=== PATIENT | male | born 2000 | race Hispanic/Latino ===

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

== ENCOUNTER 2025-02-03 12:16 | Emergency (ER) | payer BC, MEDICAID ==
[~2025-02-03] VITALS: Ht 175.3 cm; Wt 59.9 kg
[~2025-02-03 12:16] MED LIST: AMOX500C2 PO; IBUP-2070 PO
[2025-02-03] MEDS ORDERED: OCTYL 2-CYANOACRYLATE 1 EACH TP STA (12:20)
--- NOTE | 2025-02-03 12:32 | ERN ---
ED Note History of Present Illness Stated Complaint: BLOODY STOOL, FATIGUE, STOMACH ACID Time Seen by MD: 12:19 Dictation: PATIENT IS A 24-YEAR-OLD MALE COMING IN TODAY WITH HIS MOTHER WITH COMPLAINTS OF EPIGASTRIC PAIN WITH BLOODY STOOLS INTERMITTENTLY FOR THE LAST YEAR AND A HALF. NO FEVER NO CHILLS NO NAUSEA VOMITING. HE STATES HE HAS BEEN SEEN AT [facility] IN [place] HAD A PARKING WORKER WHO DID A SCOPE ENDOSCOPY AND COLONOSCOPY AND TOLD HIM HE HAD ULCERATIVE COLITIS. 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 NOW LIVES IN [place] IN HIS WANTING ADDITIONAL HELP. NO FEVER NO CHILLS. Allergies: Coded Allergies: No Known Allergies (Unverified Allergy, Unknown, 03/16/19) Home Meds Active Scripts Ibuprofen (Ibuprofen) 600 Mg Tablet, 600 MG PO Q6H PRN for PAIN, #30 TAB 0 Refills Prov:SATYA JONES MD 10/01/21 Amoxicillin (Amoxicillin) 500 Mg Capsule, 500 MG PO TID for 10 Days, #30 CAP 0 Refills Prov:SATYA JONES MD 10/01/21 Past Medical History Past Medical History: No Pertinent History, Other (ULCERATIVE COLITIS) Surgical History: None RN Note Reviewed/Agreed w/PFSH: Yes Review of System Dictation CONSTITUTIONAL: NEGATIVE EXCEPT FOR HPI HEAD/FACE: NEGATIVE EXCEPT FOR HPI EENT: NEGATIVE EXCEPT FOR HPI RESPIRATORY: NEGATIVE EXCEPT FOR HPI GASTROINTESTINAL/ABDOMINAL: NEGATIVE EXCEPT FOR HPI BLOODY DIARRHEA WITH A EPIGASTRIC PAIN GENITOURINARY: NEGATIVE EXCEPT FOR HPI MUSCULOSKELETAL: NEGATIVE EXCEPT FOR HPI INTEGUMENTARY: NEGATIVE EXCEPT FOR HPI NEUROLOGICAL/PSYCH: NEGATIVE EXCEPT FOR HPI HEMATOLOGIC/LYMPHATIC: NEGATIVE EXCEPT FOR HPI ALL SYSTEMS NEGATIVE, EXCEPT NOTED ABOVE. 13 POINT REVIEW OF SYSTEMS ASSESSED AND ALL NEGATIVE EXCEPT FOR ABOVE. Initial Vital Sign VS Vital Signs Date Time Temp Pulse Resp B/P (MAP) Pulse Ox O2 Delivery O2 Flow Rate FiO2 02/03/25 12:31 98.4 70 18 117/70 99 Room Air 02/03/25 15:14 0 21 Physical Exam Dictation VITAL SIGNS REVIEWED GENERAL APPEARANCE: ALERT, ORIENTED X 3, NO ACUTE DISTRESS, WELL DEVELOPED, NOURISHED. HEAD AND FACE: NON-TRAUMATIC. EYES: PERRL, PINK CONJUNCTIVAS, EYELID NO TRAUMA, ANTERIOR CHAMBER WITH ARCUS SENILIS. EARS: PINNAS INTACT AND NO SIGNS OF TRAUMA OR ERYTHEMA EAR CANALS CLEAR AND NO DISCHARGE TM NO ERYTHEMA NOSE: NO DISCHARGE, NO BLEEDING. OROPHARYNX: MOUTH NORMAL, TONGUE PINK, PHARYNX CLEAR,NO ERYTHEMA, TONSILS NO EXUDATES, NO ABSCESSES NOTED, MUCOUS MEMBRANE MOIST NECK: SUPPLE, NON-TENDER, NO THYROMEGALY, NO MASSES, NO JVD, NO BRUITS BREAST:DEFERRED CHEST:NO TENDERNESS, NO CREPITUS, NO PARADOXICAL MOVEMENT, NO RETRACTIONS LUNGS:CLEAR, WELL-VENTILATED, SYMMETRIC, NO RALES, NO WHEEZING, NO RHONCHI, NO STRIDOR, GOOD BREATH SOUNDS BILATERALLY HEART: REGULAR RATE, REGULAR RHYTHM, NO MURMUR, NO GALLOPS VASCULAR: NO PERIPHERAL EDEMA, ABDOMEN: SOFT, POSITIVE BOWEL SOUNDS, NONDISTENDED, NO GUARDING, MILD EPIGASTRIC TENDERNESS WITH PALPATION, NO REBOUND, NO MASSES NO HEPATOMEGALY, NO SPLENOMEGALY, NO ARIAS'S SIGN, NO HERNIAS. RECTAL: DEFERRED GENITAL: DEFERRED NEUROLOGICAL: NORMAL SPEECH, MOTOR FUNCTION INTACT, SENSORY FUNCTION INTACT MUSCULOSKELETAL: NECK NONTENDER, FULL RANGE OF MOTION, BACK NONTENDER, FULL RANGE OF MOTION, EXTREMITIES: NONTENDER, FULL RANGE OF MOTION SKIN: COLOR PINK, DRY, NO TURGOR, NO RASH, NO LACERATIONS, NO ABRASIONS, NO CONTUSIONS. LYMPHATIC: DEFERRED Results (Laboratory/Radiology) Laboratory/Radiology Laboratory Tests Test 02/03/25 12:40 White Blood Count 4.7 K/uL (4.8-10.8) L Red Blood Count 5.17 MIL/uL (4.50-6.20) Hemoglobin 9.1 g/dL (14.0-18.0) L Hematocrit 32.8 % (42-54) L Mean Corpuscular Volume 63.4 fL (79-99) L Mean Corpuscular Hemoglobin 17.6 pg (27.0-33.0) L Mean Corpuscular Hemoglobin Concent 27.7 g/dL (32.0-36.0) L Red Cell Distribution Width 20.7 % (11.0-15.5) H Platelet Count 455 K/uL (130-400) H Mean Platelet Volume 9.4 fL (7.5-10.5) Immature Granulocyte % (Auto) 0.2 % (0-1) Neutrophils (%) (Auto) 45.8 % (40.0-77.0) Lymphocytes (%) (Auto) 40.5 % (21.0-51.0) Monocytes (%) (Auto) 11.1 % (3.0-13.0) Eosinophils (%) (Auto) 1.3 % (0.0-8.0) Basophils (%) (Auto) 1.1 % (0.0-5.0) Neutrophils # (Auto) 2.2 K/uL (1.8-7.7) Lymphocytes # (Auto) 1.9 K/uL (1.0-4.8) Monocytes # (Auto) 0.5 K/uL (0.1-1.0) Eosinophils # (Auto) 0.06 K/uL (0.00-0.70) Basophils # (Auto) 0.05 K/uL (0.00-0.20) Absolute Immature Granulocyte (auto 0.01 K/uL (0-1) Nucleated Red Blood Cells 0.0 % (0.0-0.19) Red Blood Cell Morphology See comments Sodium Level 142 mmol/L (136-145) Potassium Level 3.6 mmol/L (3.5-5.1) Chloride Level 105 mmol/L (101-111) Carbon Dioxide Level 28 mmol/L (21-32) Blood Urea Nitrogen 7 mg/dL (7-18) Creatinine 0.7 mg/dL (0.5-1.3) Glomerular Filtration Rate Calc 134 mL/min (>90) Random Glucose 87 mg/dL (70-105) Total Calcium 8.8 mg/dL (8.5-10.1) Lipase 45 U/L (16-77) CT ABDOMEN/PELVIS W/CONTRAST HISTORY: Pain COMPARISON: None TECHNIQUE: Multiple sequential axial images of the abdomen and pelvis were obtained from the dome of the diaphragm through symphysis pubis. Patient was given 75 cc of Omnipaque through intravenous route. Oral contrast was not given. FINDINGS: No pleural effusion is seen bilaterally. There is no evidence of parenchymal disease or pulmonary nodule of the visualized lower lungs. The heart is not enlarged. The liver, spleen, adrenal glands and pancreas are unremarkable. There is no evidence of hydronephrosis bilaterally. No evidence of renal stone is seen. Fecal material is seen in the colon. There are normal size retroperitoneal and mesenteric lymph nodes. No ascites is seen. No CT evidence of acute appendicitis is seen. Clinical correlation is recommended. Minimal small bowel dilatation is seen with fluid-filled may be related to enteritis. Pelvic sidewalls are symmetric bilaterally. Bladder is well distended without wall thickening. IMPRESSION: 1. No CT evidence of acute appendicitis is seen. Clinical correlation is recommended. Minimal small bowel dilatation is seen with fluid-filled may be related to enteritis. Labs Reviewed?: Yes ED Course ED Course Orders Procedure Category Date Status Time Dermabond (Dermabond) PHA 02/03/25 Complete 12:20 Cbc With Differential LAB 02/03/25 Complete 12:29 Urinalysis Profile LAB 02/03/25 Logged 12: Occult Blood Stool LAB 02/03/25 Logged Single Only 12:29 0.9%Nacl 1000ml (Ns PHA 02/03/25 Complete 1000ml) 12:30 Morphine 2mg Syg PHA 02/03/25 Complete (Morphine 2mg Syg) 12:30 Ondansetron 4mg Inj PHA 02/03/25 Complete (Zofran 4mg Inj) 12:30 Famotidine 20mg Tab PHA 02/03/25 Complete (Pepcid 20mg Tab) 12:30 Lipase LAB 02/03/25 Complete 12:29 Basic Metabolic Panel LAB 02/03/25 Complete 12:29 Ct Abdomen/Pelvis CT 02/03/25 Resulted W/Contrast 14:38 Iohexol (Omnipaque) PHA 02/03/25 Complete 14:53 Methylprednisolone PHA 02/03/25 Complete Succ 125mg (Solu-Medr 16:00 Current Medications Medications (Trade) Dose Ordered Sig/Denzel Route PRN Reason Start Time Stop Time Status Last Admin Dose Admin Famotidine (Pepcid 20mg Tab) 20 mg ONCE ONCE PO 02/03/25 12:30 02/03/25 12:31 DC 02/03/25 15:01 Iohexol (Omnipaque) 75 ml STK-MED ONCE IV 02/03/25 14:53 02/03/25 14:53 DC Methylprednisolone Sodium Succinate (Solu-medROL 125MG) 125 mg ONCE ONCE IVP 02/03/25 16:00 02/03/25 16:01 DC 02/03/25 15:55 Morphine Sulfate (morPHINE 2MG SYG) 2 mg ONCE ONCE IVP 02/03/25 12:30 02/03/25 12:31 DC 02/03/25 15:01 Octyl Cyanoacrylate (Dermabond) 1 each ONCE STAT TP 02/03/25 12:20 02/03/25 12:30 DC Ondansetron HCl (zoFRAN 4MG INJ) 4 mg ONCE ONCE IVP 02/03/25 12:30 02/03/25 12:31 DC 02/03/25 15:01 Sodium Chloride 1,000 ml @ 0 mls/hr ONCE ONCE IV 02/03/25 12:30 02/03/25 12:31 DC 02/03/25 15:01 Vital Signs Date Time Temp Pulse Resp B/P (MAP) Pulse Ox O2 Delivery O2 Flow Rate FiO2 02/03/25 15:14 55 16 117/69 100 Room Air* 0 21 02/03/25 12:31 98.4 70 18 117/70 99 Room Air 1620/SPOKE WITH PATIENT AT LENGTH REGARDING MY FINDINGS INCLUDING CT SCAN. HE IS AWARE HE HAS BEEN DISCHARGED HOME WITH A ENTERITIS AND CHRONIC ANEMIA, WE WILL BE REFERRED TO DR. PEREZ WITH THE AMENDED DIET Medical Decision Making MDM MDM: DIFFERENTIAL DIAGNOSIS: GI BLEED/ULCERATIVE COLITIS/CROHN/IBS/ELECTROLYTE IMBALANCE/DEHYDRATION RATIONALE: TESTS CONSIDERED AND ORDERED SECONDARY TO SHARED DECISION MAKING INCLUDE: LABS/RADIOLOGY PREVIOUS OUTSIDE RECORDS REVIEWED: OLD ER VISITS. RISK OF COMPLICATION AND/OR MORBIDITY OR MORTALITY OF PATIENT MANAGEMENT: NONE MEDICATIONS-PER MEDICATION RECONCILIATION NEED FOR HOSPITALIZATION: PATIENT DOES NOT MEET CRITERIA FOR HOSPITALIZATION. NO NEED FOR EMERGENCY MAJOR/MINOR SURGERY: NO THERE ARE NO SOCIAL CONCERNS WITH THIS PATIENT. PRESCRIPTION DRUG MANAGEMENT SULFASALAZINE/PREDNISONE PRESCRIPTIONS WILL INCLUDE SYMPTOMATIC CARE PATIENT'S PRIOR EXTERNAL MEDICAL RECORDS FROM OTHER ER VISITS WERE REVIEWED BY ME INDICATED. PRIOR TESTING AND RESULTS FROM PREVIOUS VISITS WERE REVIEWED. PRIOR TESTS WERE TAKEN INTO ACCOUNT WITH MEDICAL DECISION MAKING AND RESOURCE UTILIZATION, INDEPENDENT HISTORIAN/HISTORIANS WERE USED TO OBTAIN COMPLETE MEDICAL HISTORY. I INDEPENDENTLY INTERPRETED THE TEST THAT WERE PERFORMED, RESULTS WERE REVIEWED BY ME AND CONSIDERED FINDINGS ON RADIOLOGY IF ORDERED. MEDICAL MANAGEMENT AND EXAMINATION INTERPRETATION DISCUSSIONS WERE HAD BY ME WITH OTHER QUALIFIED HEALTHCARE PROFESSIONALS INDICATED FOR THE PATIENT'S CARE. DX & DISP Disposition: Discharge Departure Impression: Primary Impression: Enteritis Additional Impressions: Chronic anemia, History of ulcerative colitis Condition: Stable Scripts Omeprazole (Omeprazole) 40 Mg Capsule.dr 1 CAP PO DAILY for 30 Days, #30 CAP 0 Refills Prov: KIRK DODGE NP 02/03/25 Prednisone (Prednisone) 20 Mg Tablet 1 TAB PO AD for 6 Days, #14 TAB 0 Refills TAKE 1 TAB BY MOUTH THREE TIMES PER DAY X3 DAYS, THEN TAKE 1 TAB BY MOUTH TWICE A DAY X2 DAYS, THEN TAKE 1 TAB BY MOUTH ONCE A DAY X1 DAY. TAKE WITH FOOD Prov: KIRK DODGE NP 02/03/25 Sulfasalazine (Sulfasalazine) 500 Mg Tablet 500 MG PO TID for 10 Days, #30 TAB Prov: KIRK DODGE NP 02/03/25 Additional Instructions: FOLLOW-UP WITH PRIMARY CARE PROVIDER IN 1 TO 2 DAYS. TAKE MEDICATIONS DIRECTED HERE IN THE EMERGENCY ROOM. OKAY TO CONTINUE HOME MEDICATIONS UNLESS OTHERWISE DISCUSSED DURING YOUR VISIT IN THE EMERGENCY ROOM TODAY. RETURN TO YOUR NEAREST EMERGENCY ROOM IF SYMPTOMS WORSEN OR IF THERE IS NO IMPROVEMENT. CALL 911 IF YOU NEED IMMEDIATE ASSISTANCE. TAKE TYLENOL OR MOTRIN [id number] NEEDED AND IF NO CONTRAINDICATIONS ARE PRESENT. INCREASE ORAL HYDRATION. A WOUND CULTURE OR URINE CULTURE WAS ORDERED HERE IN THE EMERGENCY ROOM DEPARTMENT PLEASE FOLLOW-UP WITH PRIMARY CARE PROVIDER AND ADVISE THEM TO GET REPEAT PORTS FROM OUR FACILITY. IF YOU HAD ANY IFRAH WRAP/SPLINTS THAT WERE APPLIED HERE, PLEASE DO NOT REMOVE THEM UNTIL YOU SEE YOUR PRIMARY CARE OR SPECIALTY. TAKE MEDICATIONS DIRECTED. FOLLOW A BLAND DIET WITH WATER FOR FLUIDS ONLY., NO SPICY FOODS NO ALCOHOL, NO TOBACCO NO CITRUS FRUIT JUICE UNTIL CLEARED BY PARKING WORKER, CALL HIM FOR AN APPOINTMENT ON WEDNESDAY. Referrals: SELF,REFERRAL (PCP) ZACH PEREZ MD, JACK P NP February 03, 2025 12:32
[2025-02-03 12:47] LABS: BASOPHILS # (AUTO) 0.05 K/uL (0.00-0.20); BASOPHILS % (AUTO) 1.1 % (0.0-5.0); EOSINOPHILS # (AUTO) 0.06 K/uL (0.00-0.70); EOSINOPHILS % (AUTO) 1.3 % (0.0-8.0); HEMATOCRIT 32.8 % (42-54); IMMATURE GRANULOCYTE ABSOLUTE 0.01 K/uL (0-1); LYMPHOCYTES # (AUTO) 1.9 K/uL (1.0-4.8); LYMPHOCYTES % (AUTO) 40.5 % (21.0-51.0); MEAN CORPUSCULAR HEMOGLOBIN 17.6 pg (27.0-33.0); MEAN CORPUSCULAR HGB CONC 27.7 g/dL (32.0-36.0); MEAN CORPUSCULAR VOLUME 63.4 fL (79-99); MONOCYTES # (AUTO) 0.5 K/uL (0.1-1.0); MONOCYTES % (AUTO) 11.1 % (3.0-13.0); NEUTROPHILS # (AUTO) 2.2 K/uL (1.8-7.7); NEUTROPHILS % (AUTO) 45.8 % (40.0-77.0); PLATELET COUNT (AUTO) 455 K/uL (130-400); RED BLOOD CELL COUNT(AUTO) 5.17 MIL/uL (4.50-6.20); RED CELL DISTRIBUTION WIDTH 20.7 % (11.0-15.5); WHITE BLOOD COUNT (AUTO) 4.7 K/uL (4.8-10.8)
[2025-02-03 12:59] LABS: CREATININE 0.7 mg/dL (0.5-1.3); POTASSIUM 3.6 mmol/L (3.5-5.1)
[2025-02-03] MEDS ORDERED: IOHEXOL-350 75 ML VIAL IV ONE (14:53)
[2025-02-03] MEDS: FAMOTIDINE 20MG TAB PO ONE (15:01)
[2025-02-03] MEDS: ondanSETRON 4MG INJ IVP ONE (15:01)
[2025-02-03] MEDS: 0.9%NACL 1000ML 1,000 ML IV ONE (15:01)
[2025-02-03] MEDS: morPHINE 2 MG SYG IVP ONE (15:01)
[2025-02-03] MEDS: Solu-medROL 125MG VIAL IVP ONE (15:55)
--- NOTE | 2025-02-03 16:08 | HMCIMG ---
CT ABDOMEN/PELVIS W/CONTRAST HISTORY: Pain COMPARISON: None TECHNIQUE: Multiple sequential axial images of the abdomen and pelvis were obtained from the dome of the diaphragm through symphysis pubis. Patient was given 75 cc of Omnipaque through intravenous route. Oral contrast was not given. FINDINGS: No pleural effusion is seen bilaterally. There is no evidence of parenchymal disease or pulmonary nodule of the visualized lower lungs. The heart is not enlarged. The liver, spleen, adrenal glands and pancreas are unremarkable. There is no evidence of hydronephrosis bilaterally. No evidence of renal stone is seen. Fecal material is seen in the colon. There are normal size retroperitoneal and mesenteric lymph nodes. No ascites is seen. No CT evidence of acute appendicitis is seen. Clinical correlation is recommended. Minimal small bowel dilatation is seen with fluid-filled may be related to enteritis. Pelvic sidewalls are symmetric bilaterally. Bladder is well distended without wall thickening. IMPRESSION: 1. No CT evidence of acute appendicitis is seen. Clinical correlation is recommended. Minimal small bowel dilatation is seen with fluid-filled may be related to enteritis. CT was performed with one or more following dose reduction techniques: automated exposure control, adjustment of the mA and kv according to patient's size, or use of a iterative reconstruction technique.
[2025-02-03] MEDS ORDERED: SULF500T8 PO (16:25)
[2025-02-03] MEDS ORDERED: OMEP40CA21 PO (16:25)
[2025-02-03] MEDS ORDERED: PRED20TA3 PO (16:25)
[2025-02-03 16:52] VITALS: BP 114/74; PULSE 56; RESP 18; TEMP 98.4; O2SAT 99
== END 2025-02-03 16:52 | disposition home or self-care (01) ==
LOC: EDH 12:16
DX: K52.9 Noninfective gastroenteritis and colitis, unspecified (principal); D64.9 Anemia, unspecified; K51.911 Ulcerative colitis, unspecified with rectal bleeding
CPT/HCPCS: 99284; 74177; 96374; 96375; 96361; 80048; 83690; 85025; 36415; J2919; J2270; J7030; J2405; Q9967